=== PATIENT | female | born 1940 | race Caucasian/White ===

== ENCOUNTER 2017-04-16 15:02 | Inpatient (IN) | payer MEDICARE, OTHER ==
[~2017-04-16] VITALS: Ht 167.6 cm; Wt 110.9 kg
[2017-04-16] VITALS (8 sets, daily range): BP systolic 79–119; BP diastolic 52–69; PULSE 65–107; RESP 14–20; TEMP 96.9–98.2; O2SAT 95–96
[2017-04-16] MEDS ORDERED: SODIUM CHLOR 0.9% 1000 ML INJ 1,000 ML IV SCH (15:47)
--- NOTE | 2017-04-16 15:59 | PD ---
HPI Chief Complaint: GI Complaint Time Seen by Provider: 15:47 Travel History International Travel<30 days: No Contact w/Intl Traveler<30days: No Traveled to known affect area: No History of Present Illness HPI 76-year-old female patient who has history of stage IV pancreatic cancer currently on chemotherapy, visiting [place] from out of state, has been having constipation for the past week and has been given magnesium citrate and Colace 2 days ago, presents to the ER today for constant diarrhea. She has some lower abdominal cramping pains. She denies any fevers, vomiting, or other symptoms. She states that she is feeling weak, states that the stool is just coming out of her. She had called her physician and was greeted by nurse by phone and nurse had told her to come in to be evaluated for stool impaction. She denies any recent antibiotic use, sick contacts, or bad food exposure. She denies any foreign trips. Modifying Factors: None Associated Signs & Symptoms: Several days of ongoing diarrhea Risk Factors: After given medication for constipation PFSH Past Medical History Hx Anticoagulant Therapy: Yes (asa 81 mg) Atrial Fibrillation: Yes Cancer: Yes (Pancreatic ) Cardiovascular Problems: Yes (htn on meds, irregular heart beat) Chemotherapy: Yes Diabetes: Yes (Type 2) Patient Takes Glucophage: Yes Hypertension: Yes Tetanus Vaccination: Unknown Influenza Vaccination: Yes ?: Not Menopausal: Yes Dilation and Curettage (D&C): Yes Past Surgical History Cholecystectomy: Yes Hysterectomy: Yes Tonsillectomy: Yes (& adenoids) Social History Alcohol Use: No Tobacco Use: No Substance Use: No Allergies-Medications (Allergen,Severity, Reaction): Coded Allergies: Sulfa (Sulfonamide Antibiotics) (Verified Allergy, Severe, Rash/hives, ) erythromycin base (Verified Allergy, Severe, Rash/hives, 04/16/17) latex (Verified Allergy, Severe, Rash/hives, 04/16/17) nitrofurantoin (Verified Allergy, Severe, Rash/hives, 04/16/17) sulfamethoxazole (Verified Allergy, Severe, Rash/hives, 04/16/17) trimethoprim (Verified Allergy, Severe, Rash/hives, 04/16/17) codeine (Verified Adverse Reaction, Severe, Vomiting, 04/16/17) Review of Systems Except as stated in HPI: all other systems reviewed are Neg Physical Exam Narrative GENERAL: Well-developed elderly white female patient currently in mild distress. Awake and oriented 3. SKIN: Focused skin assessment warm/dry. HEAD: Atraumatic. Normocephalic. EYES: Pupils equal and round. No scleral icterus. No injection or drainage. ENT: No nasal bleeding or discharge. Mucous membranes pink and moist. NECK: Trachea midline. No JVD. CARDIOVASCULAR: Regular rate and rhythm. No murmur appreciated. RESPIRATORY: No accessory muscle use. Clear to auscultation. Breath sounds equal bilaterally. GASTROINTESTINAL: Abdomen soft, obese, non-tender, nondistended. Hepatic and splenic margins not palpable. RECTAL EXAM: No masses or tenderness, stool is loose and yellowish brown. No stool boluses identified. Hemoccult positive. MUSCULOSKELETAL: No obvious deformities. No clubbing. No cyanosis. No edema. NEUROLOGICAL: Awake and alert. No obvious cranial nerve deficits. Motor grossly within normal limits. Normal speech. PSYCHIATRIC: Appropriate mood and affect; insight and judgment normal. Data Data Last Documented VS Vital Signs Date Time Temp Pulse Resp B/P Pulse Ox O2 Delivery O2 Flow Rate FiO2 04/16/17 16:20 96 Room Air 04/16/17 15:35 98.2 86 14 83/54 Orders Complete Blood Count With Diff (04/16/17 15:47) Comprehensive Metabolic Panel (04/16/17 15:47) Urinalysis - C+S If Indicated (04/16/17 15:47) Abdomen, Flat & Upright (04/16/17 ) Iv Access Insert/Monitor (04/16/17 15:47) Ecg Monitoring (04/16/17 15:47) Oximetry (04/16/17 15:47) Sodium Chlor 0.9% 1000 Ml Inj (Ns 1000 M (04/16/17 15:47) Sodium Chloride 0.9% Flush (Ns Flush) (04/16/17 16:00) Stool Wbc (Leukocytes) (04/16/17 15:47) Enteric Path (Stool) (04/16/17 15:47) C Diff Toxin Pcr (04/16/17 15:47) Cath For Specimen (04/16/17 16:59) Ns + Kcl 40 Meq Inj (Ns + Kcl 40 Meq Inj (04/16/17 17:15) Labs Laboratory Tests Test 04/16/17 04/16/17 16:25 17:05 White Blood Count 8.6 TH/MM3 Red Blood Count 4.04 MIL/MM3 Hemoglobin 11.7 GM/DL Hematocrit 34.5 % Mean Corpuscular Volume 85.3 FL Mean Corpuscular Hemoglobin 28.9 PG Mean Corpuscular Hemoglobin 33.9 % Concent Red Cell Distribution Width 16.0 % Platelet Count 172 TH/MM3 Mean Platelet Volume 7.6 FL Neutrophils (%) (Auto) 77.7 % Lymphocytes (%) (Auto) 12.7 % Monocytes (%) (Auto) 8.5 % Eosinophils (%) (Auto) 0.4 % Basophils (%) (Auto) 0.7 % Neutrophils # (Auto) 6.7 TH/MM3 Lymphocytes # (Auto) 1.1 TH/MM3 Monocytes # (Auto) 0.7 TH/MM3 Eosinophils # (Auto) 0.0 TH/MM3 Basophils # (Auto) 0.1 TH/MM3 CBC Comment DIFF FINAL Differential Comment Sodium Level 126 MEQ/L Potassium Level 2.8 MEQ/L Chloride Level 87 MEQ/L Carbon Dioxide Level 28.9 MEQ/L Anion Gap 10 MEQ/L Blood Urea Nitrogen 14 MG/DL Creatinine 1.20 MG/DL Estimat Glomerular Filtration 44 ML/MIN Rate Random Glucose 124 MG/DL Calcium Level 8.8 MG/DL Total Bilirubin 0.6 MG/DL Aspartate Amino Transf 30 U/L (AST/SGOT) Alanine Aminotransferase 26 U/L (ALT/SGPT) Alkaline Phosphatase 112 U/L Total Protein 5.9 GM/DL Albumin 2.7 GM/DL Urine pH 7.5 Urine Protein NEG mg/dL Urine Glucose (UA) NEG mg/dL Urine Ketones NEG mg/dL Urine Occult Blood NEG Urine Nitrite NEG Urine Bilirubin NEG Urine Leukocyte Esterase NEG MDM Medical Decision Making Medical Screen Exam Complete: Yes Emergency Medical Condition: Yes Medical Record Reviewed: Yes Interpretation(s) Laboratory Tests Test 04/16/17 16:25 Hematocrit 34.5 % (35.0-46.0) Neutrophils (%) (Auto) 77.7 % (16.0-70.0) Monocytes (%) (Auto) 8.5 % (0.0-8.0) Sodium Level 126 MEQ/L (136-145) Potassium Level 2.8 MEQ/L (3.5-5.1) Chloride Level 87 MEQ/L (98-107) Creatinine 1.20 MG/DL (0.50-1.00) Estimat Glomerular Filtration 44 ML/MIN (>89) Rate Random Glucose 124 MG/DL (74-106) Total Protein 5.9 GM/DL (6.4-8.2) Albumin 2.7 GM/DL (3.4-5.0) Differential Diagnosis Diarrheamedication related to diarrhea versus stool impaction versus viral gastroenteritis versus C. difficile diarrhea versus dehydration versus metabolic issues Narrative Course Patient is having ongoing diarrhea in the ER. Stool is Hemoccult trace positive. Her H&H is stable. Her lab work shows significant dehydration with elevated creatinine and low sodium and potassium of 2.8. At this point, my plan would be to admit the patient for further IV fluid treatment and IV potassium. Case was discussed with Dr. Espinoza for admission. Stool studies have been sent but are pending. H[facility]Prompt Point of Care Internal Pos. & Neg. Controls: Passed Fecal Specimen Occult Blood: Positive Diagnosis Primary Impression: Diarrhea Additional Impressions: Severe dehydration Hyponatremia Hypokalemia Admitting Information Admitting Physician Requests: Admit Shweta Vargas MD Apr 16, 2017 15:59
[2017-04-16] MEDS ORDERED: SODIUM CHLORIDE 0.9% FLUSH 10 ML FLUSH IV FLUSH PRN ×2 (16:00→17:30)
--- NOTE | 2017-04-16 16:40 | RADRPT ---
EXAM DATE/TIME: 04/16/2017 16:01 [facility] COMPARISON: No previous studies available for comparison. INDICATIONS : Patient has had loose stools since Thursday. MEDICAL HISTORY : Carcinoma, pancreas. SURGICAL HISTORY : Hysterectomy. ENCOUNTER: Initial ACUITY: 3 days PAIN SCORE: 0/10 LOCATION: Bilateral Abdomen FINDINGS: AP supine and erect views of the abdomen were obtained and demonstrate gas and stool noted segmentall y in the colon. There are multiple loops of nondilated air-containing small bowel in the midabdomen w ith no free air. The patient is status post cholecystectomy. There is a mild scoliosis of the lumbar spine with degenerative disc change. CONCLUSION: 1. Nonspecific, nonobstructive bowel gas pattern which may representing gastroenteritis and/or ileus. 2. Status post cholecystectomy. John Ren MD on April 16, 2017 at 16:37 Board Certified Radiologist. This report was verified electronically.
[2017-04-16 16:43] LABS: AUTOMATED NEUTROPHIL # 6.7 TH/MM3 (1.8-7.7); BASOPHIL # 0.1 TH/MM3 (0-0.2); BASOPHIL % 0.7 % (0.0-2.0); EOSINOPHIL % 0.4 % (0.0-4.0); HEMATOCRIT 34.5 % (35.0-46.0); HEMO FLAGS DIFF FINAL; LYMPH % 12.7 % (9.0-44.0); LYMPHOCYTE # 1.1 TH/MM3 (1.0-4.8); MEAN CELL VOLUME 85.3 FL (80.0-100.0); MEAN CORPUSCULAR HEMOGLOBIN 28.9 PG (27.0-34.0); MEAN CORPUSCULAR HGB CONC 33.9 % (32.0-36.0); MONO % 8.5 % (0.0-8.0); NEUT % 77.7 % (16.0-70.0); PLATELET COUNT 172 TH/MM3 (150-450); RED BLOOD COUNT 4.04 MIL/MM3 (4.00-5.30); WHITE BLOOD COUNT 8.6 TH/MM3 (4.0-11.0)
[2017-04-16 17:07] LABS: ALKALINE PHOSPHATASE 112 U/L (45-117); ALT (GPT) 26 U/L (10-53); ANION GAP 10 MEQ/L (5-15); AST (GOT) 30 U/L (15-37); BICARBONATE 28.9 MEQ/L (21.0-32.0); BLOOD UREA NITROGEN 14 MG/DL (7-18); CHLORIDE 87 MEQ/L (98-107); GLOMERULAR FILTRATION RATE 44 ML/MIN (>89); SODIUM (NA) 126 MEQ/L (136-145); TOTAL BILIRUBIN ADULT 0.6 MG/DL (0.2-1.0)
[2017-04-16 17:08] LABS: POTASSIUM 2.8 MEQ/L (3.5-5.1)
[2017-04-16] MEDS ORDERED: NS + KCL 40 MEQ INJ 1,000 ML IV ONE (17:15)
[2017-04-16 17:17] LABS: BLOOD, URINE NEG (NEG); GLUCOSE,URINE NEG (NEG); KETONE, URINE NEG (NEG); NITRITE,URINE NEG (NEG); PH, URINE 7.5 (5.0-8.5)
[2017-04-16 17:26] LABS: URINE COLOR STRAW (YELLW/STRAW)
[2017-04-16 17:27] LABS: COMMENT (UR) CULT NOT INDICATED; CULTURE IF INDICATED CULT NOT INDICATED; RBC, URINE 0-3 /hpf (0-3); SQUAMOUS EPITHELIAL CELL URINE 0-5 /hpf (0-5); WBC, URINE 0-2 /hpf (0-5)
[2017-04-16] MEDS ORDERED: GLUCAGON 1 MG/ML VIAL OTHER PRN (17:30)
[2017-04-16] MEDS ORDERED: DEXTROSE 50% IN WATER 50 ML VIAL(D50) IV PRN (17:30)
[2017-04-16] MEDS ORDERED: ONDANSETRON HCL 4 MG/2 ML VIAL IVP PRN (17:30)
[2017-04-16] MEDS ORDERED: ACETAMINOPHEN 325 MG TAB PO PRN (17:30)
[2017-04-16] MEDS ORDERED: NALOXONE HCL 0.4 MG/ML AMP IV PRN (17:30)
[2017-04-16] MEDS: NS + KCL 20 MEQ INJ 1,000 ML IV SCH (17:51)
[2017-04-16] MEDS ORDERED: BISMUTH SUBSALICYLATE 240 ML BTL PO ONE (18:00)
--- NOTE | 2017-04-16 18:05 | HHI.HP ---
[facility] Non-Staff Admission Diagnosis dehydration/severe diarrhea/hypokalemia/hyponatremia Diagnoses: (1) Diarrhea Diagnosis: Principal (2) Hyponatremia Diagnosis: Principal (3) Hypokalemia Diagnosis: Principal (4) Azotemia Diagnosis: Principal Chief Complaint: Fecal incontinence Travel History International Travel<30 Days: No Contact w/Intl Traveler <30 Da: No Traveled to Known Affected Are: No History of Present Illness Written by Kaleb Sunshine, acting as scribe for Dr. Espinoza on 04/16/17 at 17: 54. 76-year-old female with rather unfortunate situation with pancreatic cancer. Patient was diagnosed with pancreatic cancer in November of this year after investigation started in August. She is undergoing chemotherapy and has had medications changed due to multiple reasons latest to include thrombocytopenia. Patient's last dose of chemotherapy was one week ago. She states that she was having constipation for approximately 4 days. She drank a half a bottle of magnesium citrate and took 2 Colace tablets 2 days ago. She did not get the output that she thought she was hoping to achieve. She states that she just got minimal amount of yellow stained water that appears to just drip out of her bottom. She called her physician up in [place] who indicated that she may have an obstruction and should go to the hospital for evaluation. The patient came to the emergency department for evaluation and had an x-ray performed which did show nonspecific, nonobstructive bowel gas pattern representing gastroenteritis and/or ileus. Emergency department workup does indicate significant electrolyte abnormalities to include hyponatremia, hypokalemia. It was recommended by the emergency room physician that the patient be observed in the hospital for further workup. Patient states that she is not experiencing any abdominal pain. She has not had any abdominal cramping. She has not had any nausea or vomiting. Review of Systems Gastrointestinal: COMPLAINS OF: Diarrhea Except as stated in HPI: all other systems reviewed are Neg Past Family Social History Past Medical History Hypertension Diabetes type 2 Pancreatic cancer History of atrial fibrillation Past Surgical History Tonsillectomy Partial hysterectomy Cholecystectomy Lymph node biopsies and pancreatic biopsy Allergies: Coded Allergies: Sulfa (Sulfonamide Antibiotics) (Verified Allergy, Severe, Rash/hives, ) erythromycin base (Verified Allergy, Severe, Rash/hives, 04/16/17) latex (Verified Allergy, Severe, Rash/hives, 04/16/17) nitrofurantoin (Verified Allergy, Severe, Rash/hives, 04/16/17) sulfamethoxazole (Verified Allergy, Severe, Rash/hives, 04/16/17) trimethoprim (Verified Allergy, Severe, Rash/hives, 04/16/17) codeine (Verified Adverse Reaction, Severe, Vomiting, 04/16/17) Family History Reviewed is significant for cancer in the family. Mother with leukemia. Father and sister with breast cancer. Grandfather with pancreatic cancer Social History Patient denies any tobacco, alcohol or illicit drugs Physical Exam Vital Signs Vital Signs Date Time Temp Pulse Resp B/P Pulse Ox O2 Delivery O2 Flow Rate FiO2 04/16/17 17:25 65 14 119/61 95 Room Air 04/16/17 17:00 72 16 116/61 96 Room Air 04/16/17 16:25 81 14 96/60 95 Room Air 04/16/17 16:20 96 Room Air 04/16/17 15:35 98.2 86 14 83/54 96 Room Air 04/16/17 15:11 98.2 107 16 79/52 96 Physical Exam GENERAL: Well-developed, well-nourished, in no acute distress. alert and orientated HEENT: Head is normocephalic without any lesions or masses noted. Facial features are symmetric. Eyes: Pupils equal round reactive to light. Extraocular muscles are intact. Conjunctivae were clear. Oropharyngeal: Pharynx without any erythema edema. Tongue is midline without deviation. Buccal mucosa is moist without any masses or lesions NECK: Supple without any masses. Trachea midline no deviation. No JVD, no bruits are appreciated CARDIAC: Regular rhythm, regular rate. S1/S2 are heard. No murmurs gallops or rubs. LUNGS: Clear to auscultation bilaterally. No wheeze, rhonchi or rales. No use of accessory muscles on inspiration or expiration. ABDOMEN: Soft, nontender. Nondistended. Bowel sounds heard in all 4 quadrants. No organomegaly or masses. Negative rebound, negative guarding EXTREMITIES: No edema, pulses are equal bilaterally. No cyanosis or clubbing NEUROLOGY: Mood and affect appear appropriate. Cranial nerves II through XII grossly intact. Muscle strength 5/5 in upper and lower extremities bilaterally. Deep tendon reflexes are 2+ in upper and lower extremities bilaterally. Laboratory Laboratory Tests Test 04/16/17 04/16/17 16:25 17:05 White Blood Count 8.6 Red Blood Count 4.04 Hemoglobin 11.7 Hematocrit 34.5 Mean Corpuscular Volume 85.3 Mean Corpuscular Hemoglobin 28.9 Mean Corpuscular Hemoglobin 33.9 Concent Red Cell Distribution Width 16.0 Platelet Count 172 Mean Platelet Volume 7.6 Neutrophils (%) (Auto) 77.7 Lymphocytes (%) (Auto) 12.7 Monocytes (%) (Auto) 8.5 Eosinophils (%) (Auto) 0.4 Basophils (%) (Auto) 0.7 Neutrophils # (Auto) 6.7 Lymphocytes # (Auto) 1.1 Monocytes # (Auto) 0.7 Eosinophils # (Auto) 0.0 Basophils # (Auto) 0.1 CBC Comment DIFF FINAL Differential Comment Sodium Level 126 Potassium Level 2.8 Chloride Level 87 Carbon Dioxide Level 28.9 Anion Gap 10 Blood Urea Nitrogen 14 Creatinine 1.20 Estimat Glomerular Filtration 44 Rate Random Glucose 124 Calcium Level 8.8 Total Bilirubin 0.6 Aspartate Amino Transf 30 (AST/SGOT) Alanine Aminotransferase 26 (ALT/SGPT) Alkaline Phosphatase 112 Total Protein 5.9 Albumin 2.7 Urine Color STRAW Urine Turbidity CLEAR Urine pH 7.5 Urine Specific [place] 1.007 Urine Protein NEG Urine Glucose (UA) NEG Urine Ketones NEG Urine Occult Blood NEG Urine Nitrite NEG Urine Bilirubin NEG Urine Leukocyte Esterase NEG Urine RBC 0-3 Urine WBC 0-2 Urine Squamous Epithelial 0-5 Cells Microscopic Urinalysis Comment CULT NOT INDICATED Date/Time Procedure Status Source Growth 04/16/17 17:00 Stool Pus (SARI) Received Stool Stool Pending 04/16/17 17:00 Received Stool Stool Pending Result Diagram: 04/16/17 1625 04/16/17 1625 Imaging Last Impressions Abdomen X-Ray 04/16/17 0000 Signed Impressions: Service Date/Time: , April 16, 2017 16:01 - CONCLUSION: 1. Nonspecific, nonobstructive bowel gas pattern which may representing gastroenteritis and/or ileus. 2. Status post cholecystectomy. John Ren MD Assessment and Plan Assessment and Plan Diarrhea Patient with fecal incontinence with yellow stained water dripping out of her bottom after using of magnesium citrate and Colace X-ray of the abdomen does not indicate any obstructive pattern does indicate possible enteritis versus ileus We'll obtain CT scan of the abdomen and pelvis to rule out any fecal impaction or obstructive diarrhea Electrolyte abnormalities with hyponatremia, hypokalemia continue monitor and replete as needed Azotemia Continue IV fluids Monitor renal function Diabetes Accu-Cheks with sliding scale insulin Hypertension, history of atrial fibrillation Monitor blood pressure Nursing staff to obtain patient's home medication list and update records to resume her home meds DVT prevention Sequential compression devices This note was transcribed by scribe [Kaleb Sunshine]. I, Dr. Iliana Espinoza personally performed the history, physical exam, and medical decision making; and confirmed the accuracy of the information in the transcribed note. Authenticated by Dr. Iliana Espinoza on 04/16/17 at 18:00. Code Status Full code Kaleb Sunshine Apr 16, 2017 18:04 Iliana Espinoza MD Apr 16, 2017 18:47
[2017-04-16 19:36] LABS: MAGNESIUM 1.6 MG/DL (1.5-2.5)
[2017-04-16] MEDS ORDERED: DIATRIZOATE MEGLUM/DIATRIZOATE SOD 9 ML CUP PO ONE (19:45)
[2017-04-16] MEDS: SODIUM CHLORIDE 0.9% FLUSH 10 ML FLUSH IV FLUSH SCH (20:08)
[2017-04-16] MEDS: INSULIN ASPART SUPPLEMENTAL SCALE SQ SCH (20:09)
--- NOTE | 2017-04-16 21:55 | RADRPT ---
EXAM DATE/TIME: 04/16/2017 21:25 [facility] COMPARISON: No previous studies available for comparison. INDICATIONS : Dehydration, diarrhea, possible obstruction. ORAL CONTRAST: Prescribed oral contrast ingested. RADIATION DOSE: 25.01 CTDIvol (mGy) MEDICAL HISTORY : Carcinoma, pancreas. SURGICAL HISTORY : None. ENCOUNTER: Initial ACUITY: 4 - 6 days PAIN SCALE: 0/10 LOCATION: abdomen TECHNIQUE: Volumetric scanning of the abdomen and pelvis was performed. Using automated exposure control and ad justment of the mA and/or kV according to patient size, radiation dose was kept as low as reasonably achievable to obtain optimal diagnostic quality images. DICOM format image data is available electro nically for review and comparison. FINDINGS: There is mild basilar atelectasis or scarring in the lungs. Multiple small calcified granulomata in t he liver. Spleen unremarkable. Adrenals, kidneys and pancreas unremarkable. Previous cholecystectomy. Small hiatal hernia. There is no small bowel obstruction. There is mild constipation. Appendix normal. There is mural thickening of the rectum and anus and there is inflammatory or edematous stranding in the ischiorectal fossa and presacral soft tissue swelling. Findings are most characteristic of a proc titis. CONCLUSION: 1. Abnormal soft tissue thickening of the rectum and anus with inflammatory changes in the ischiorect al fossa and presacral soft tissues most characteristic of a proctitis. No discrete or drainable absc ess. No bowel obstruction. Appendix normal. Previous cholecystectomy. Marlon Jung MD on April 16, 2017 at 21:51 Board Certified Radiologist. This report was verified electronically.
[2017-04-16 22:05] LABS: C. DIFF EPI 027 PRESUMPTIVE NEGATIVE (NEGATIVE)
[2017-04-17] VITALS: BP 103/63; PULSE 70; RESP 20; TEMP 97.1; O2SAT 93
[2017-04-17] MEDS ORDERED: METF1000 PO (00:27)
[2017-04-17] MEDS ORDERED: LOPERAMIDE HCL 2 MG CAP PO ONE (00:45)
[2017-04-17] MEDS: NS + KCL 20 MEQ INJ 1,000 ML IV SCH ×4 (01:48→20:50)
[2017-04-17] MEDS ORDERED: DETR4CAP PO (05:33)
[2017-04-17] MEDS ORDERED: LISI10TA PO (05:33)
[2017-04-17] MEDS ORDERED: CALC600T64 PO (05:33)
[2017-04-17] MEDS ORDERED: LEVO-168 PO (05:33)
[2017-04-17] MEDS ORDERED: MONT10TA2 PO (05:33)
[2017-04-17] MEDS ORDERED: FISH1000 PO (05:33)
[2017-04-17] MEDS ORDERED: METO25TA3 PO (05:33)
[2017-04-17] MEDS ORDERED: ZOCO10TA PO (05:33)
[2017-04-17] MEDS ORDERED: CETI-1 (05:33)
[2017-04-17] MEDS ORDERED: ONETAB13 PO (05:33)
[2017-04-17] MEDS ORDERED: ASPI81TA11 PO (05:33)
[2017-04-17 05:56] LABS: AUTOMATED NEUTROPHIL # 4.3 TH/MM3 (1.8-7.7); BASOPHIL % 0.6 % (0.0-2.0); EOSINOPHIL # 0.1 TH/MM3 (0-0.4); EOSINOPHIL % 1.2 % (0.0-4.0); HEMATOCRIT 31.2 % (35.0-46.0); HEMO FLAGS DIFF FINAL; LYMPHOCYTE # 1.6 TH/MM3 (1.0-4.8); MEAN CELL VOLUME 85.7 FL (80.0-100.0); MEAN CORPUSCULAR HEMOGLOBIN 28.5 PG (27.0-34.0); MEAN CORPUSCULAR HGB CONC 33.2 % (32.0-36.0); MONO % 12.1 % (0.0-8.0); NEUT % 62.1 % (16.0-70.0); PLATELET COUNT 141 TH/MM3 (150-450); RED BLOOD COUNT 3.65 MIL/MM3 (4.00-5.30); RED CELL DISTRIBUTION WIDTH 16.3 % (11.6-17.2); WHITE BLOOD COUNT 6.8 TH/MM3 (4.0-11.0)
[2017-04-17] MEDS: INSULIN ASPART SUPPLEMENTAL SCALE SQ SCH ×4 (06:08→20:49)
[2017-04-17 06:16] LABS: BICARBONATE 27.7 MEQ/L (21.0-32.0)
[2017-04-17 08:00] VITALS: BP 113/64; PULSE 70; RESP 20; TEMP 96.8; O2SAT 96
[2017-04-17] MEDS: SODIUM CHLORIDE 0.9% FLUSH 10 ML FLUSH IV FLUSH SCH ×2 (09:00→20:49)
--- NOTE | 2017-04-17 10:58 | HHI.PR ---
Subjective Remarks Patient continues to be incontinent. "Liquid stool just coming out" no abdominal pain. No history of abdominal radiation. No nausea or vomiting. Objective Vitals Vital Signs Date Time Temp Pulse Resp B/P Pulse Ox O2 Delivery O2 Flow Rate FiO2 04/17/17 08:00 96.8 70 20 113/64 96 04/17/17 00:00 97.1 70 20 103/63 93 04/16/17 20:00 97.8 78 20 102/65 96 04/16/17 18:30 96.9 73 20 116/69 96 04/16/17 17:25 65 14 119/61 95 Room Air 04/16/17 17:00 72 16 116/61 96 Room Air 04/16/17 16:25 81 14 96/60 95 Room Air 04/16/17 16:20 96 Room Air 04/16/17 15:35 98.2 86 14 83/54 96 Room Air 04/16/17 15:11 98.2 107 16 79/52 96 I/O 04/16/17 04/16/17 04/16/17 04/17/17 04/17/17 04/17/17 06:59 14:59 22:59 06:59 14:59 22:59 Intake Total 2500 ml Balance 2500 ml Intake Oral 1500 ml IV Total 1000 ml # Voids 3 # Bowel Movements 5 Result Diagram: 04/17/17 0500 04/17/17 0500 Imaging Last Impressions Abdomen/Pelvis CT 04/16/17 0000 Signed Impressions: Service Date/Time: March 21:25 - CONCLUSION: 1. Abnormal soft tissue thickening of the rectum and anus with inflammatory changes in the ischiorectal fossa and presacral soft tissues most characteristic of a proctitis. No discrete or drainable abscess. No bowel obstruction. Appendix normal. Previous cholecystectomy. Marlon Jung MD Abdomen X-Ray 04/16/17 0000 Signed Impressions: Service Date/Time: March 16:01 - CONCLUSION: 1. Nonspecific, nonobstructive bowel gas pattern which may representing gastroenteritis and/or ileus. 2. Status post cholecystectomy. John Ren MD Objective Remarks GENERAL: This is a well-nourished, well-developed patient, in no apparent distress. CARDIOVASCULAR: Normal rate and regular rhythm without murmurs, gallops, or rubs. RESPIRATORY: Good respiratory efforts. Breath sounds equal and clear to auscultation bilaterally. GASTROINTESTINAL: Abdomen soft, non-tender, non-distended. Normal active bowel sounds MUSCULOSKELETAL: Extremities without cyanosis, or edema. NEURO: Alert & Oriented x4 to person, place, time, situation. Moves all ext x4 PSYCH: Appropriate mood and affect. A/P Problem List: (1) Diarrhea ICD Code: R19.7 Status: Acute (2) Hyponatremia ICD Code: E87.1 Status: Acute (3) Hypokalemia ICD Code: E87.6 Status: Acute (4) Azotemia ICD Code: R79.89 Status: Acute Assessment and Plan 76-year-old female with pancreatic cancer undergoing chemotherapy treatment initially was having issues with constipation which was treated with mag citrate and Colace. Since then the patient has been having stool incontinence. Abdominal CT revealed proctitis. Diarrhea, proctitis. Symptoms not improving. Consult GI for assistance. She is getting dehydrated with electrolyte disturbances from this. NPO until seen by GI. Electrolyte abnormalities with hyponatremia, hypokalemia Replace and continue to monitor. Azotemia Improved. Continue IV fluids Monitor renal function Diabetes Accu-Cheks with sliding scale insulin Hypertension, history of atrial fibrillation Monitor blood pressure - Hold off on meds for now. Blood pressure acceptable. DVT prevention Sequential compression devices Iliana Espinoza MD Apr 17, 2017 10:58
[2017-04-17 12:00] VITALS: BP_SYST 104; BP_SYST 155; BP_DIAS 72; BP_DIAS 87; PULSE 82; PULSE 86; RESP 18; RESP 20; TEMP 96.9; TEMP 98.4; O2SAT 96; O2SAT 98
[2017-04-17] MEDS: POTASSIUM CHLOR 20 MEQ PREMIX 100 ML IV SCH (13:51)
[2017-04-17 16:00] VITALS: BP 110/75; PULSE 77; RESP 18; TEMP 98.7; O2SAT 98
--- NOTE | 2017-04-17 16:37 | MB ---
cc: SANDRA DAVALOS M.D., RICARDY DATE OF CONSULTATION: 04/17/2017 REASON FOR CONSULTATION Proctitis with fecal incontinence. HISTORY OF PRESENT ILLNESS: Miss Cardenas is a 76-year-old lady with previous diagnosis of pancreatic cancer made earlier this year. She is currently on chemotherapy through [facility] in [place]. She has been getting chemotherapy. She got her last dose of chemotherapy a week ago and essentially came down to this area because she has a home here. She says she felt like she was a low constipated says she took some [id number] laxatives, this resulted in yellowish color liquid from the rectum and for this she was referred to the hospital. Workup here revealed a CT scan revealed proctitis on the CT scan. She is not describing any abdominal pain at this time she is not having any crampiness. She says she is not taking pain medicines and she was not constipated prior to this one episode. REVIEW OF SYSTEMS Diarrhea is the only complaint at this time she had some rectal bleeding earlier but none since then. PAST MEDICAL HISTORY 1. Hypertension 2. Diabetes 3. Pancreatic cancer 4. Atrial fibrillation. PAST SURGICAL HISTORY 1. Tonsillectomy 2. Hysterectomy 3. Cholecystectomy 4. Previous colonoscopy few years ago with polyps. ALLERGIES SULFA DRUGS ERYTHROMYCIN NITROFURANTOIN CODEINE FAMILY HISTORY Leukemia breast cancer pancreatic cancer. SOCIAL HISTORY No tobacco, no alcohol. PHYSICAL EXAMINATION: IN GENERAL: The physical examination reveals a well-nourished lady in no apparent distress. VITAL SIGNS: Stable. HEAD/NECK: Anicteric sclerae. CHEST: Bilateral air entry with rales. ABDOMEN: Abdomen is soft, obese, nontender. No hepatosplenomegaly. Bowel sounds are present. CENTRAL NERVOUS SYSTEM: Exam is nonfocal. RECTUM: Rectal exam deferred at this time. LABORATORY FINDINGS: Labs reveal white cell count of 6.8, hemoglobin 10.4, potassium 3, creatinine 0.97. CT of the abdomen and pelvis reveals abnormal soft tissue thickening of the rectum and anus with inflammatory changes in the ischial rectal fossae. This is consistent with proctitis. IMPRESSION Proctitis. RECOMMENDATIONS The patient C-difficile is negative. Obviously she is on chemotherapy which places her at a increases risk for infections. I have ordered remainder of the stool studies as well as ova and parasites. The patient is not too anxious to get a colonoscopy at this time. She states she appears to be improving. We will continue to monitor her over the next day or so depending upon clinical situation. A sigmoidoscopy versus colonoscopy might be necessary. We will follow with you. MD KATHLEEN Rob/zandra /4:12 PM /4:22 PM
[2017-04-17 21:27] VITALS: BP 155/82; PULSE 97; RESP 16; TEMP 98.2; O2SAT 95
[2017-04-18 01:40] VITALS: BP 143/80; PULSE 89; RESP 18; TEMP 98.3; O2SAT 97
[2017-04-18] MEDS: NS + KCL 20 MEQ INJ 1,000 ML IV SCH (05:05)
[2017-04-18 06:47] LABS: HEMATOCRIT 29.9 % (35.0-46.0); MEAN CELL VOLUME 85.5 FL (80.0-100.0); MEAN CORPUSCULAR HEMOGLOBIN 28.7 PG (27.0-34.0); MEAN CORPUSCULAR HGB CONC 33.6 % (32.0-36.0); PLATELET COUNT 152 TH/MM3 (150-450); RED BLOOD COUNT 3.49 MIL/MM3 (4.00-5.30); REVIEW FLAG FINAL; WHITE BLOOD COUNT 6.2 TH/MM3 (4.0-11.0)
[2017-04-18] MEDS: INSULIN ASPART SUPPLEMENTAL SCALE SQ SCH (07:00)
[2017-04-18 07:30] LABS: POTASSIUM 3.8 MEQ/L (3.5-5.1)
[2017-04-18 08:19] VITALS: BP 121/65; PULSE 78; RESP 19; TEMP 97.6; O2SAT 92
[2017-04-18] MEDS: SODIUM CHLORIDE 0.9% FLUSH 10 ML FLUSH IV FLUSH SCH (09:00)
[2017-04-18] MEDS ORDERED: LOPERAMIDE HCL 2 MG CAP PO ONE (09:45)
[2017-04-18] MEDS ORDERED: LOPERAMIDE HCL 2 MG CAP PO PRN (09:45)
[2017-04-18] MEDS ORDERED: MILKSUS PO (10:44)
[2017-04-18] MEDS ORDERED: META48.53 PO (10:44)
[2017-04-18] MEDS ORDERED: POTA10CA PO (10:44)
[2017-04-18] MEDS ORDERED: LOPE2CAP92 PO (10:44)
--- NOTE | 2017-04-18 10:52 | HHI.PR ---
Subjective Remarks Patient states that she feels much better today and is 80% back to her baseline. Her bowel movements are beginning to be formed. Her potassium is normal. The patient is ambulating well without difficulty. She would like to go home today. She is planning to stay overnight at her local residence and then tomorrow she and her will drive back up to [place]. She has an appointment with her oncologist later this week. Objective Vitals Vital Signs Date Time Temp Pulse Resp B/P Pulse Ox O2 Delivery O2 Flow Rate FiO2 04/18/17 08:19 97.6 78 19 121/65 92 04/18/17 01:40 98.3 89 18 143/80 97 04/17/17 21:27 98.2 97 16 155/82 95 04/17/17 16:00 98.7 77 18 110/75 98 04/17/17 12:00 96.9 82 18 104/72 98 I/O 04/17/17 04/17/17 04/17/17 04/18/17 04/18/17 04/18/17 07:00 15:00 23:00 07:00 15:00 23:00 Intake Total 2020 ml 3062 ml 1170 ml Balance 2020 ml 3062 ml 1170 ml Intake Oral 1320 ml IV Total 700 ml 3062 ml 1170 ml # Voids 2 1 5 # Bowel Movements 3 1 2 Result Diagram: 04/18/17 0630 04/18/17 0630 Imaging Last Impressions Abdomen/Pelvis CT 04/16/17 0000 Signed Impressions: Service Date/Time: March 21:25 - CONCLUSION: 1. Abnormal soft tissue thickening of the rectum and anus with inflammatory changes in the ischiorectal fossa and presacral soft tissues most characteristic of a proctitis. No discrete or drainable abscess. No bowel obstruction. Appendix normal. Previous cholecystectomy. Marlon Jung MD Abdomen X-Ray 04/16/17 0000 Signed Impressions: Service Date/Time: March 16:01 - CONCLUSION: 1. Nonspecific, nonobstructive bowel gas pattern which may representing gastroenteritis and/or ileus. 2. Status post cholecystectomy. John Ren MD Objective Remarks GENERAL: Well-nourished, well-developed very pleasant female patient. SKIN: Warm and dry. HEAD: Normocephalic. EYES: No scleral icterus. No injection or drainage. NECK: Supple, trachea midline. No JVD or lymphadenopathy. CARDIOVASCULAR: Regular rate and rhythm without murmurs, gallops, or rubs. RESPIRATORY: Breath sounds equal bilaterally. No accessory muscle use. GASTROINTESTINAL: Bowel sounds are normal. Abdomen soft, non-tender, nondistended. EXTREMITIES: No cyanosis, or edema. NEUROLOGICAL: Awake, alert, and oriented x 3. Non-focal. A/P Problem List: (1) Diarrhea ICD Code: R19.7 Status: Acute (2) Hyponatremia ICD Code: E87.1 Status: Acute (3) Hypokalemia ICD Code: E87.6 Status: Acute (4) Azotemia ICD Code: R79.89 Status: Acute Assessment and Plan 76-year-old female with diagnosis of pancreatic cancer made earlier this year he underwent chemotherapy within the past several weeks presented to the ER with diarrhea and dehydration. Initially the patient had been constipated and so she had taken a lot of laxatives in the outpatient setting, then developed leaking stool. C. difficile was negative. The patient is now having some formed stools. She has been seen by gastroenterology who recommended supportive care. I recommend to the patient that she stay on a regiment to include Metamucil daily, milk of magnesia. She is informed to hold the milk of magnesia should she develop diarrhea again. She is encouraged to use Imodium as needed for diarrhea. She is encouraged to eat a diabetic diet that is high in fiber and to drink 88 ounce glasses of water daily and ambulation is encouraged to prevent further constipation. She will follow-up with her oncologist later this week in [place]. Of note her TSH is slightly elevated however uncertain how to interpret this in the setting of acute illness I would defer further management to her primary care physician in [place]. The patient is stable at this time for discharge. Time spent in discharge planning and coordination 30 minutes. Dasha Dozier MD Apr 18, 2017 10:52
== END 2017-04-18 11:58 | disposition home or self-care (01) | DRG 641 ==
LOC: PHED 15:02 → OBSVTOIN 17:21 → PHEDA 17:21 → INTOOBSV 17:21 → PH3B 18:16 → INTOOBSV 04-17 12:02 → OBSVTOIN 04-17 12:02
PROVIDERS: ADMIT Family Medicine; ATTEND Family Medicine
DX: E86.0 Dehydration (principal); I48.91 Unspecified atrial fibrillation; C25.9 Malignant neoplasm of pancreas, unspecified; E11.9 Type 2 diabetes mellitus without complications; E87.1 Hypo-osmolality and hyponatremia; R19.7 Diarrhea, unspecified; I10 Essential (primary) hypertension; E87.6 Hypokalemia; Z79.82 Long term (current) use of aspirin; Z79.84 Long term (current) use of oral hypoglycemic drugs
CPT/HCPCS: 74020; 74176; 80048; 80053; 81001; 82948; 83735; 84443; 85025; 85027; 87205; 87493; 87506; 96360; J1642; J3480; J7030; P9612; Q9963